=== PATIENT | female | born 1995 | race Caucasian/White ===

== ENCOUNTER → 2017-05-19 13:15 | Observation (INO) ==
[2017-05-19 11:13] LABS: Bilirubin,Urine Negative (Negative); Blood,Urine Negative (Negative); Color,Urine Yellow (Yellow); Glucose,Urine (UA) Normal (Normal); Ketones,Urine Negative (Negative); Leukocyte Esterase,Urine Trace (Negative); Nitrite,Urine Negative (Negative); Protein,Urine Negative (Neg-Trace); Specific Gravity,Urine 1.012 (1.010-1.025); Urobilinogen,Urine Normal (Normal)
[2017-05-19 11:14] LABS: Bacteria,Urine Few per hpf (None-Few); Hyaline Casts,Urine None Seen per lpf (None-Few); RBC,Urine 0-3 per hpf (0-3); Squamous Epithelial Cell,Urine Many per lpf (None-Few)
[2017-05-19 11:18] LABS: Clarity,Urine Clear (Clear)
[2017-05-19 11:20] LABS: Amphetamine Screen,Urine Negative ng/mL (Cutoff=1000); Barbiturate Screen,Urine Negative ng/mL (Cutoff=200); Benzodiazepines Screen,Urine Negative ng/mL (Cutoff=200); Cannabinoid Screen,Urine Negative ng/mL (Cutoff = 50); Cocaine Screen,Urine Negative ng/mL (Cutoff= 300); Opiate Screen,Urine Negative ng/mL (Cutoff=300); Phencyclidine Screen,Urine Negative ng/mL (Cutoff=25)
--- NOTE | 2017-05-19 11:30 | OB/GYN History & Physical ---
Date of Encounter: 05/19/17 Time of Encounter: 11:27 Assessment and Plan (1) 39 weeks gestation of Current visit: Yes Status: Acute Serial vaginal exams - if cervical change, will admit for labor NST - reactive category I tracing History of Present Illness Chief complaint: Contractions starting at 0430 HPI: Ms. Watson is a 21 year old at 39 weeks 4 days that is seen by [facility] for care. She presents to labor and delivery with c/o contractions beginning at 0430. She states she has had no problems with this , but has been seen in triage at [facility] multiple times for false labor. She states positive movement. She denies headache, vision changes, epigastric pain, vaginal bleeding, and vaginal leaking. She believes her blood type is O+. Her records have been requested. Past Med Surg Social Fam HX - Past Medical History Medical history: no medical history Psychiatric history: depression - Past Surgical History Surgical History: no surgical history - Social History Smoking Status: Never smoker Alcohol use: none Drug use: none - Family History Mother Adopted: No Living Status: Still Living Hx Family Cardiac Disorders: No Hx Family Respiratory Disorders: No Hx Family Cancer: No Hx Family GI Disorders: No Hx Family Genitourinary Disorders: No Hx Family Endocrine Disorder: No Hx Family Musculoskeletal Disorders: No Hx Family Neuromuscular Disorders: No Hx Family Neurologic Disorders: No Hx Family HEENT Disorders: No Hx Family Autoimmune Disorders: No Hx Family Reproductive Disorders: No Hx Family Psychosocial Disorders: No Hx Family Medical Disorders: No Obstetrical History - Pregnancies : 1 Para: 0 Term: 0 : 0 Ab's: 0 Livin Medications and Allergies Zithromax 1 tab PO DAILY 05/19/17 [History] 3 Allergy/AdvReac Type Severity Reaction Status Date / Time Amoxicillin Allergy See Verified 05/19/17 10:47 Comments Penicillins Allergy See Verified 05/19/17 10:47 Comments Review of System OB All systems PM: reviewed and no additional remarkable complaints except as stated Exam - Constitutional Constitutional: well developed, well nourished, no acute distress, average body habitus - HEENT HEENT: Normocephaly, Mucus Membranes Moist - Neck Neck exam: full ROM - Lungs Respiratory exam: CTAB - Cardiovascular Cardiovascular exam: RRR, +S1, +S2 - Breasts Breast: bilateral: normal - Abdomen Abdomen: Present: bowel sounds normal, gravid, non tender - Extremities Extremities exam: normal capillary refill, normal inspection, radial pulses palpable and symmetrical Deep Tendon Reflex Grade: 2+ Normal - Cervix Dilation: 3 (Per RN exam) Effacement: 80 (Per RN exam) Station: -1 - Uterus Uterus exam: Present: normal size, normal contour Results Abnormal lab results Ur Leukocyte Esterase Trace (Negative) H 05/19/17 10:56 Urine Microscopic WBC 5-15 per hpf (0-3) H 05/19/17 10:56 Ur Squamous Epith Cells Many per lpf (None-Few) H 05/19/17 10:56 Ur Culture Indicated? YES (NO) A 05/19/17 10:56 All other labs normal. - VTE Reasons for not Prescribing Prophylaxis: Treatment not Indicated - Low risk for VTE
[~2017-05-19 13:15] MED LIST: *HR* Morphine 10 MG/ML VIAL SQ ONE; *HR* Morphine 2 MG/ML SYRINGE SQ ONE
== END | disposition home or self-care (01) ==
LOC: 1NENULAB
PROVIDERS: ADMIT Obstetrics & Gynecology; ATTEND Obstetrics & Gynecology